=== PATIENT | female | born 1985 | race Hispanic/Latino ===

== ENCOUNTER 2024-09-06 11:45 | Emergency (ER) | payer BC, MEDICAID ==
[~2024-09-06] VITALS: Ht 157.5 cm; Wt 83.9 kg
--- NOTE | 2024-09-06 12:09 | ERN ---
ED Note History of Present Illness Stated Complaint: UPPER ABD PAIN Chief Complaint: Abdominal Pain Time Seen by MD: 11:46 Dictation: Patient is a 39-year-old female came to the ED with chief complaint of abdominal pain since 3 days. Patient has been having nausea, vomiting, abdominal pain radiating to the back since 3 days and she went to an ED in [place] and was told that it might be related to gallbladder. Patient also informs that she is constipated since 3 days and last bowel movement 3 days ago. Patient complaint of chills, patient took Toradol with no relief the abdominal pain. Patient denies headache, shortness of breath, chest pain, diarrhea. Patient informed that she drank alcohol on the day the abdominal pain started. Allergies: Coded Allergies: No Known Allergies (Unverified Allergy, Unknown, 09/06/24) Home Meds Active Scripts Pantoprazole Sodium (Protonix) 40 Mg Tablet.dr, 40 MG PO DAILY for 10 Days, #10 TAB Prov:SHERLY ORDONEZ MD 09/06/24 Cephalexin Monohydrate (Keflex) 500 Mg Cap, 500 MG PO BID for 10 Days, #20 CAP Prov:SHERLY ORDONEZ MD 09/06/24 Past Medical History Past Medical History: No Pertinent History Surgical History: Other Surgical History Other: EARS LMP: Aug 24, 2024 Review of System Dictation Constitutional-no chills, weight loss/gain, fever Eyes-no injury, pain, redness and discharge ENT-no injury, pain, swelling Cardiovascular no chest pain, palpitations, edema Respiratory no shortness of breath, cough, wheezing Abdomen/GI-no diarrhea, patient has abdominal pain, constipation, vomiting, nausea Back no injury and pain Genitourinary no injury, bleeding and discharge Musculoskeletal/extremities no injury, deformity Skin no rash, discoloration Neuro-no headache, weakness, numbness, tingling, seizures, tremors Psych-no suicidal ideation, homicidal ideation, hallucinations, depression, anxiety, memory loss Initial Vital Sign VS Vital Signs Date Time Temp Pulse Resp B/P (MAP) Pulse Ox O2 Delivery O2 Flow Rate FiO2 09/06/24 11:48 98.8 99 16 116/75 97 Room Air 0 09/06/24 14:25 21 Physical Exam Dictation General-patient is awake alert and oriented Head/neck-normocephalic, atraumatic Eyes-PERRL, EOMI, vision at baseline Neck-trachea midline, supple, no nuchal rigidity Cardiovascular-RRR, normal S1/S2, no MRG is, no JVD Respiratory-no distress, wheezing, rales, rhonchi Abdomen-no soft, nondistended . Patient has tenderness and guarding in epigastric and left upper quadrants Skin warm, dry, normal turgor, no rash Musculoskeletal/extremities pulses equal, no cyanosis Neuro-COA X 4, GCS 15, strength 5/5, CN 2-12 intact Psych-normal behavior, mood and affect normal Results (Laboratory/Radiology) Laboratory/Radiology Laboratory Tests Test 09/06/24 12:06 09/06/24 12:25 White Blood Count 13.7 K/uL (4.8-10.8) H Red Blood Count 3.84 MIL/uL (4.00-5.50) L Hemoglobin 11.0 g/dL (12.0-16.0) L Hematocrit 33.5 % (36-48) L Mean Corpuscular Volume 87.2 fL (79-99) Mean Corpuscular Hemoglobin 28.6 pg (27.0-33.0) Mean Corpuscular Hemoglobin Concent 32.8 g/dL (32.0-36.0) Red Cell Distribution Width 13.9 % (11.0-15.5) Platelet Count 225 K/uL (130-400) Mean Platelet Volume 10.4 fL (7.5-10.5) Immature Granulocyte % (Auto) 0.6 % (0-1) Neutrophils (%) (Auto) 76.9 % (40.0-77.0) Lymphocytes (%) (Auto) 14.2 % (21.0-51.0) L Monocytes (%) (Auto) 7.6 % (3.0-13.0) Eosinophils (%) (Auto) 0.5 % (0.0-8.0) Basophils (%) (Auto) 0.2 % (0.0-5.0) Neutrophils # (Auto) 10.6 K/uL (1.8-7.7) H Lymphocytes # (Auto) 2.0 K/uL (1.0-4.8) Monocytes # (Auto) 1.1 K/uL (0.1-1.0) H Eosinophils # (Auto) 0.07 K/uL (0.00-0.70) Basophils # (Auto) 0.03 K/uL (0.00-0.20) Absolute Immature Granulocyte (auto 0.08 K/uL (0-1) Nucleated Red Blood Cells 0.0 % (0.0-0.19) Sodium Level 136 mmol/L (136-145) Potassium Level 3.4 mmol/L (3.5-5.1) L Chloride Level 100 mmol/L (101-111) L Carbon Dioxide Level 27 mmol/L (21-32) Blood Urea Nitrogen 10 mg/dL (7-18) Creatinine 0.8 mg/dL (0.5-1.0) Glomerular Filtration Rate Calc 97 mL/min (>90) Random Glucose 98 mg/dL (70-105) Total Calcium 8.7 mg/dL (8.5-10.1) Total Bilirubin 0.4 mg/dL (0.2-1.0) Direct Bilirubin 0.1 mg/dL (0.0-0.3) Aspartate Amino Transf (AST/SGOT) 14 U/L (10-37) Alanine Aminotransferase (ALT/SGPT) 18 U/L (12-78) Alkaline Phosphatase 54 U/L (50-136) Total Protein 7.8 g/dL (6.0-8.3) Albumin 3.2 g/dL (3.5-5.0) L Lipase 35 U/L (16-77) Serum Test, Qualitative NEGATIVE (NEGATIVE) Urine Color YELLOW (YELLOW) Urine Appearance CLOUDY (CLEAR) H Urine pH 6.0 (5.0-8.0) Urine Specific [place] 1.012 (1.001-1.031) Urine Protein 20 mg/dL (NEGATIVE) H Urine Glucose (UA) NEGATIVE mg/dL (NEGATIVE) Urine Ketones 10 mg/dL (NEGATIVE) H Urine Occult Blood SMALL (NEGATIVE) H Urine Nitrate NEGATIVE (NEGATIVE) Urine Bilirubin NEGATIVE mg/dL (NEGATIVE) Urine Urobilinogen 0.2 mg/dL (0.2-1.0) Urine Leukocyte Esterase 500 Tone/uL (NEGATIVE) H Urine RBC 6-10 /HPF (0-1) H Urine WBC 11-25 /HPF (0-1) H Urine Squamous Epithelial Cells MOD /HPF (0-2) Urine Bacteria MOD /HPF (None Seen) Urine Hyaline Casts 2-5 /LPF (0-1 /LPF) H CT Scan Comment: PATIENT: LORRAINE LANDIS MR#: [id number] : 1985 SEX: F AGE: 39 LOCATION: [facility] ORDER 04 STATUS: [facility] ER REPORT#: [id number] SERVICE 1201 REASON: pancreatitis ? , renal stones? ORDERING PHYSICIAN: SHERLY ORDONEZ MD PROCEDURE: ABD PEL WO - CT ABDOMEN/PELVIS W/O CONTRAST CT ABDOMEN/PELVIS W/O CONTRAST HISTORY: Pancreatitis COMPARISON: None TECHNIQUE: Multiple sequential axial images of the abdomen and pelvis were obtained from the dome of the diaphragm through symphysis pubis. Patient was not given contrast through intravenous route. Oral contrast was not given. FINDINGS: No pleural effusion is seen bilaterally. There is no evidence of parenchymal disease or pulmonary nodule of the visualized lower lungs. Degenerative changes of the thoracolumbar spine are present. The heart is not enlarged. Liver measures 18 cm with fatty changes. Gallbladder is distended. Fat stranding is seen in the pancreatic head area and adjacent to stomach may be related to pancreatitis versus gastritis versus duodenitis. Lipase correlation may be helpful. The liver, spleen, adrenal glands and pancreas are unremarkable. There is no evidence of hydronephrosis bilaterally. No evidence of renal stone is seen. Fecal material is seen in the colon. There are normal size retroperitoneal and mesenteric lymph nodes. No ascites is seen. No CT evidence of acute appendicitis is seen. Pelvic sidewalls are symmetric bilaterally. Bladder is poorly distended. IMPRESSION: 1. Gallbladder is distended. Fat stranding is seen in the pancreatic head area and adjacent to stomach may be related to pancreatitis versus gastritis versus duodenitis. Lipase correlation may be helpful. CT was performed with one or more following dose reduction techniques: automated exposure control, adjustment of the mA and kv according to patient's size, or use of a iterative reconstruction technique. DICTATED BY: ZACHERY LORA MD DATE: 09/06/241420 ELECTRONICALLY SIGNED BY: ZACHERY LORA MD DATE: 09/06/241427 ED Course ED Course Orders Procedure Category Date Status Time Cbc With Differential LAB 09/06/24 Complete 11:48 Basic Metabolic Panel LAB 09/06/24 Complete 11:48 Lipase LAB 09/06/24 Complete 11:48 Hepatic Function Panel LAB 09/06/24 Complete 11:48 Testing, LAB 09/06/24 Complete Serum Hcg 11:48 Urinalysis Profile LAB 09/06/24 Complete 11:48 Ondansetron 4mg Inj PHA 09/06/24 Complete (Zofran 4mg Inj) 12:30 Pantoprazole 40mg Inj PHA 09/06/24 Complete (Protonix 40mg Inj 12:30 Ct Abdomen/Pelvis W/O CT 09/06/24 Resulted Contrast 12:01 0.9%Nacl 1000ml (Ns PHA 09/06/24 Complete 1000ml) 12:30 Culture Urine MO 09/06/24 In Process 12:53 Current Medications Medications (Trade) Dose Ordered Sig/Tammy Route PRN Reason Start Time Stop Time Status Last Admin Dose Admin Ondansetron HCl (zoFRAN 4MG INJ) 4 mg ONCE ONCE IVP 09/06/24 12:30 09/06/24 12:31 DC 09/06/24 14:17 Pantoprazole Sodium (PROTonix 40MG INJ) 80 mg ONCE ONCE IVP 09/06/24 12:30 09/06/24 12:31 DC 09/06/24 14:17 Sodium Chloride 1,000 ml @ 0 mls/hr ONCE ONCE IV 09/06/24 12:30 09/06/24 12:31 DC 09/06/24 14:16 Vital Signs Date Time Temp Pulse Resp B/P (MAP) Pulse Ox O2 Delivery O2 Flow Rate FiO2 09/06/24 14:25 97.7 94 18 109/64 98 Room Air* 0 21 09/06/24 11:48 98.8 99 16 116/75 97 Room Air 0 Medical Decision Making MDM INITIAL IMPRESSION Initial history and physical concerning for acute pancreatitis, gallstones, renal stones, gastritis Contributing medical problems: Obesity I have reviewed the triage nursing notes and vital signs. Initial plan: Laboratory evaluation and CT scan DATA REVIEW I have reviewed additional NN, repeat VS, and monitoring where indicated. Heart rate, blood pressure, and O2 saturation are acceptable. ED COURSE Interventions: Medication and fluids Reassessment: Not indicated DISPOSITION Final diagnostic impression: Gastritis I discussed my findings, clinical impression and treatment recommendations with the patient. My final plan for disposition was made based upon -mild risk of complications and potential morbidity of the patient's condition. -Discussion with the patient regarding management options. Patient will be discharged with medication DX & DISP Disposition: Discharge Departure Impression: Primary Impression: Gastritis Condition: Stable Scripts Pantoprazole Sodium (Protonix) 40 Mg Tablet.dr 40 MG PO DAILY for 10 Days, #10 TAB Prov: SHERLY ORDONEZ MD 09/06/24 Cephalexin Monohydrate (Keflex) 500 Mg Cap 500 MG PO BID for 10 Days, #20 CAP Prov: SHERLY ORDONEZ MD 09/06/24 Additional Instructions: Come to the ED if you have any acute or emergency symptoms. Do not drink alcohol. Alcohol can prevent healing and make your gastritis worse. Talk to your healthcare provider if you need help to stop drinking. Do not take NSAIDs or aspirin unless directed. These and similar medicines can cause irritation. If your healthcare provider says it is okay to take NSAIDs, take them with food. Do not eat foods or drink liquids that cause irritation. Foods such as oranges and salsa can cause burning or pain. Drinks such as coffee, alcohol or soda may upset your stomach. Eat a variety of healthy foods. Examples include fruits (not citrus), vegetables, low-fat dairy products, beans, whole-grain breads, and lean meats and fish. Try to eat small meals, and drink water with your meals. Do not eat for at least 3 hours before you go to bed. Find ways to relax and decrease stress. Stress can increase stomach acid and make gastritis worse. Activities such as yoga, meditation, or listening to music can help you relax. Spend time with friends, or do things you enjoy. Referrals: SELF,REFERRAL (PCP) I have reviewed I have reviewed the case I WAS PRESENT AND PARTICIPATED IN THE CARE OF THIS PATIENT ALONGSIDE WITH THE RESIDENT PHYSICIAN. I HAVE REVIEWED AND PERSONALLY MADE AND APPROVED THE MANAGEMENT PLAN THAT IS DOCUMENTED IN THE NOTE BY MYSELF WITH THE RESIDENT PHYSICIAN. I ACKNOWLEDGED FOR RESPONSIBILITY FOR THE PATIENT'S MANAGEMENT PLAN. I have examined patient SHERLY ORDONEZ MD Sep 06, 2024 12:09 DAVID RODRIGUEZ MD Sep 06, 2024 14:57
--- NOTE | 2024-09-06 12:45 | NUR ---
CT DELAY DUE TO PENDING HCG
[2024-09-06 12:47] LABS: BASOPHILS # (AUTO) 0.03 K/uL (0.00-0.20); BASOPHILS % (AUTO) 0.2 % (0.0-5.0); EOSINOPHILS # (AUTO) 0.07 K/uL (0.00-0.70); EOSINOPHILS % (AUTO) 0.5 % (0.0-8.0); HEMATOCRIT 33.5 % (36-48); IMMATURE GRANULOCYTE ABSOLUTE 0.08 K/uL (0-1); LYMPHOCYTES % (AUTO) 14.2 % (21.0-51.0); MEAN CORPUSCULAR HEMOGLOBIN 28.6 pg (27.0-33.0); MEAN CORPUSCULAR HGB CONC 32.8 g/dL (32.0-36.0); MEAN CORPUSCULAR VOLUME 87.2 fL (79-99); MONOCYTES # (AUTO) 1.1 K/uL (0.1-1.0); MONOCYTES % (AUTO) 7.6 % (3.0-13.0); NEUTROPHILS # (AUTO) 10.6 K/uL (1.8-7.7); NEUTROPHILS % (AUTO) 76.9 % (40.0-77.0); PLATELET COUNT (AUTO) 225 K/uL (130-400); RED BLOOD CELL COUNT(AUTO) 3.84 MIL/uL (4.00-5.50); RED CELL DISTRIBUTION WIDTH 13.9 % (11.0-15.5); WHITE BLOOD COUNT (AUTO) 13.7 K/uL (4.8-10.8)
[2024-09-06 12:52] LABS: ADD UA MICROSCOPIC YES; APPEARANCE,URINE CLOUDY (CLEAR); BILIRUBIN,URINE NEGATIVE (NEGATIVE); COLOR,URINE YELLOW (YELLOW); GLUCOSE, URINE (UA) NEGATIVE (NEGATIVE); KETONES,URINE 10 mg/dL (NEGATIVE); LEUKOCYTE ESTERASE ,URINE 500 Leu/uL (NEGATIVE); NITRATE,URINE NEGATIVE (NEGATIVE); OCCULT BLOOD,URINE SMALL (NEGATIVE); PROTEIN,URINE 20 mg/dL (NEGATIVE); UROBILINOGEN,URINE 0.2 mg/dL (0.2-1.0)
[2024-09-06 12:58] LABS: CREATININE 0.8 mg/dL (0.5-1.0); POTASSIUM 3.4 mmol/L (3.5-5.1)
[2024-09-06 13:02] LABS: ALBUMIN 3.2 g/dL (3.5-5.0); BILIRUBIN,DIRECT 0.1 mg/dL (0.0-0.3); BILIRUBIN,TOTAL 0.4 mg/dL (0.2-1.0); TOTAL PROTEIN, SERUM 7.8 g/dL (6.0-8.3)
[2024-09-06 13:14] LABS: BACTERIA,URINE MOD /HPF (None Seen); MUCUS,URINE RARE LPF (None Seen); SQUAMOUS EPITHELIAL CELL,UR MOD /HPF (0-2)
[2024-09-06] MEDS: 0.9%NACL 1000ML 1,000 ML IV ONE (14:16)
[2024-09-06] MEDS: ondanSETRON 4MG INJ IVP ONE (14:17)
[2024-09-06] MEDS: PANTOPrazole 40 MG/VIAL IVP ONE (14:17)
--- NOTE | 2024-09-06 14:28 | HMCIMG ---
CT ABDOMEN/PELVIS W/O CONTRAST HISTORY: Pancreatitis COMPARISON: None TECHNIQUE: Multiple sequential axial images of the abdomen and pelvis were obtained from the dome of the diaphragm through symphysis pubis. Patient was not given contrast through intravenous route. Oral contrast was not given. FINDINGS: No pleural effusion is seen bilaterally. There is no evidence of parenchymal disease or pulmonary nodule of the visualized lower lungs. Degenerative changes of the thoracolumbar spine are present. The heart is not enlarged. Liver measures 18 cm with fatty changes. Gallbladder is distended. Fat stranding is seen in the pancreatic head area and adjacent to stomach may be related to pancreatitis versus gastritis versus duodenitis. Lipase correlation may be helpful. The liver, spleen, adrenal glands and pancreas are unremarkable. There is no evidence of hydronephrosis bilaterally. No evidence of renal stone is seen. Fecal material is seen in the colon. There are normal size retroperitoneal and mesenteric lymph nodes. No ascites is seen. No CT evidence of acute appendicitis is seen. Pelvic sidewalls are symmetric bilaterally. Bladder is poorly distended. IMPRESSION: 1. Gallbladder is distended. Fat stranding is seen in the pancreatic head area and adjacent to stomach may be related to pancreatitis versus gastritis versus duodenitis. Lipase correlation may be helpful. CT was performed with one or more following dose reduction techniques: automated exposure control, adjustment of the mA and kv according to patient's size, or use of a iterative reconstruction technique.
[2024-09-06] MEDS ORDERED: PANT40TA PO (14:42)
[2024-09-06] MEDS ORDERED: CEPH500B PO (14:42)
[2024-09-06] MEDS: ketOROlac 15MG/ML VIAL (15MG/ML) IV ONE (15:23)
[2024-09-06 15:40] VITALS: BP 99/71; PULSE 94; RESP 18; TEMP 97.7; O2SAT 97
--- NOTE | 2024-09-09 08:04 | NUR ---
UPON REVIEW OF CULTURE RESULTS BY DR. DHALIWAL, ABX NEED TO CHANGE TO MACROBID 100MG PO BID X 7 DAYS. MADE PT AWARE WITH PHONE NUMBER ON FILE. WILL CALL PRESCRIPTION TO [facility] IN [place].
== END 2024-09-06 15:51 | disposition home or self-care (01) ==
LOC: EDH 11:45
DX: K29.70 Gastritis, unspecified, without bleeding (principal); R11.2 Nausea with vomiting, unspecified; Z79.899 Other long term (current) drug therapy; Z98.890 Other specified postprocedural states
CPT/HCPCS: 99284; 74176; 96374; 96375; 96361; 80076; 80048; 84703; 83690; 85025; 87086 ×2; 87186; 81001; 36415; J7030; J2405; J2470; J1885